=== PATIENT | male | born 1985 | race Hispanic/Latino ===

== ENCOUNTER 2023-04-04 23:04 | Emergency (ER) | payer OTHER ==
[~2023-04-04] VITALS: Ht 175.3 cm; Wt 131.1 kg
[~2023-04-04 23:04] MED LIST: AMOX-429 PO; LACT1CAP58 PO
[2023-04-04 23:43] LABS: BASOPHILS # (AUTO) 0.05 K/uL (0.00-0.20); BASOPHILS % (AUTO) 0.3 % (0.0-5.0); EOSINOPHILS # (AUTO) 0.05 K/uL (0.00-0.70); EOSINOPHILS % (AUTO) 0.3 % (0.0-8.0); HEMATOCRIT 41.3 % (42-54); LYMPHOCYTES # (AUTO) 1.8 K/uL (1.0-4.8); LYMPHOCYTES % (AUTO) 11.1 % (21.0-51.0); MEAN CORPUSCULAR HEMOGLOBIN 26.6 pg (27.0-33.0); MEAN CORPUSCULAR HGB CONC 33.2 g/dL (32.0-36.0); MONOCYTES # (AUTO) 1.7 K/uL (0.1-1.0); MONOCYTES % (AUTO) 10.4 % (3.0-13.0); NEUTROPHILS # (AUTO) 12.3 K/uL (1.8-7.7); NEUTROPHILS % (AUTO) 77.3 % (40.0-77.0); PLATELET COUNT (AUTO) 257 K/uL (130-400); RED BLOOD CELL COUNT(AUTO) 5.16 MIL/uL (4.50-6.20); RED CELL DISTRIBUTION WIDTH 13.3 % (11.0-15.5); WHITE BLOOD COUNT (AUTO) 15.9 K/uL (4.8-10.8)
[2023-04-04 23:59] LABS: APPEARANCE,URINE CLEAR (CLEAR); BILIRUBIN,URINE NEGATIVE (NEGATIVE); GLUCOSE, URINE (UA) NEGATIVE (NEGATIVE); KETONES,URINE NEGATIVE (NEGATIVE); LEUKOCYTE ESTERASE ,URINE NEGATIVE Leu/uL (NEGATIVE); NITRATE,URINE NEGATIVE (NEGATIVE); PH,URINE 6.5 (5.0-8.0); PROTEIN,URINE NEGATIVE (NEGATIVE); UROBILINOGEN,URINE 0.2 mg/dL (0.2-1.0)
[2023-04-05] LABS: ADD UA MICROSCOPIC YES; COLOR,URINE Light-Yellow (YELLOW)
[2023-04-05 00:05] LABS: WBC,URINE 0-1 /HPF (0-1)
[2023-04-05 00:08] LABS: ALBUMIN 3.6 g/dL (3.5-5.0); BILIRUBIN,TOTAL 0.6 mg/dL (0.2-1.0); CREATININE 1.1 mg/dL (0.5-1.5); MAGNESIUM 1.5 mg/dL (1.80-2.40)
[2023-04-05 00:18] LABS: POTASSIUM 2.7 mmol/L (3.5-5.1)
[2023-04-05] MEDS ORDERED: POTASSIUM BICARB/CIT AC 25 MEQ TABLET.EFF ONE (00:30)
[2023-04-05] MEDS ORDERED: POTASSIUM BICARB/CIT AC 25 MEQ TABLET.EFF PO ONE (00:30)
[2023-04-05] MEDS ORDERED: MAGNESIUM 2GM PREMIX 50ML 50 ML IV SCH (00:30)
[2023-04-05] MEDS ORDERED: MAGNESIUM 2GM PREMIX 50ML 50 ML IV ONE (00:30)
[2023-04-05] MEDS ORDERED: IOHEXOL 350 MG/ML 100ML INFUS..BTL IV ONE (00:36)
[2023-04-05] MEDS ORDERED: CEFTRIAXONE 1G VIAL IVPB ONE (02:00)
[2023-04-05 02:20] VITALS: BP 135/68; PULSE 68; RESP 17; O2SAT 96
[2023-04-05] MEDS ORDERED: CEPH500B PO (02:27)
== END 2023-04-05 02:39 | disposition home or self-care (01) ==
LOC: EDH 23:04
DX: R60.0 Localized edema (principal); E87.6 Hypokalemia; E83.42 Hypomagnesemia; L85.9 Epidermal thickening, unspecified
CPT/HCPCS: 99285; 71045; 84443; 82550; 83735; 84484; 80053; 83880; 85025; 81001; 36415 ×2; 93005; 74177; 93970; 96365; 96366; 96375; J3475; J0696; Q9967

== ENCOUNTER 2024-05-07 20:35 | Emergency (ER) | payer OTHER, MEDICARE ==
[~2024-05-07] VITALS: Ht 175.3 cm; Wt 121.1 kg
[~2024-05-07 20:35] MED LIST changes: +CEPH500B PO
[2024-05-07 20:41] VITALS: BP 128/81; PULSE 74; RESP 20; TEMP 98.6; O2SAT 100
[2024-05-07] MEDS ORDERED: SULF1TAB42 PO (20:59)
== END 2024-05-07 21:10 | disposition home or self-care (01) ==
LOC: EDH 20:35
DX: L03.116 Cellulitis of left lower limb (principal); Z79.899 Other long term (current) drug therapy